=== PATIENT | male | born 1995 | race Caucasian/White ===

== ENCOUNTER 2023-05-31 08:17 | Emergency (ER) | payer OTHER, SELFPAY ==
[2023-05-31] VITALS (25 sets, daily range): BP systolic 108–140; BP diastolic 73–99; PULSE 56–76; RESP 8–22; TEMP 36.8; O2SAT 97–100
--- NOTE | ~2023-05-31 | XR_ITS ---
EXAMINATION: XR chest 1V portable DATE: 05/31/2023 08:38 INDICATION: Shortness of breath. Left chest pain. TECHNIQUE: A single frontal view of the chest was obtained on 2 radiographs. COMPARISON: None. FINDINGS: The chest demonstrates clear lungs without pneumonia, pleural effusion, or pneumothorax. Th e heart size is normal. IMPRESSION: 1. No acute cardiopulmonary disease. Reviewed, dictated and finalized at location A.
--- NOTE | 2023-05-31 08:18 | ECG_ITS ---
Measurements Intervals [place] Rate: 66 P: 260 TX: 84 QRS: 72 QRSD: 102 T: 46 QT: 379 QTc: 399 Interpretive Statements ECTOPIC ATRIAL RHYTHM INCOMPLETE RIGHT BUNDLE BRANCH BLOCK ABNORMAL ECG NO PREVIOUS ECG AVAILABLE FOR COMPARISON Electronically Signed On 05-31-2023 18:29:10 CDT by Micheal Alfaro D.O.
--- NOTE | 2023-05-31 09:16 | ED.CHESTPAIN ---
HPI - Chest Pain General Chief Complaint: Chest Pain Stated Complaint: chest pain Time Seen by Provider: 05/31/23 08:21 History of Present Illness HPI narrative: Patient is a 27-year-old male presenting with 6 months of chest pain. Patient states that he has been having diffuse chest pain associated with shortness of breath for the last approximately 6 months. He feels it is worsened over the last several weeks. States that he has noticed that it improves with exertion and comes back when he rests. States that it feels like he forgets about it whenever he is being active. Reports a mild cough. States he felt lightheaded and nauseated this morning so he came in for evaluation. States that he just made an appointment with his PCP for June 11. Currently, he denies pain. He declines pain medication. No fevers or chills, abdominal pain, vomiting, leg swelling, rashes, changes in bowel habits. Related Data Allergies Allergy/AdvReac Type Severity Reaction Status Date / Time No Known Allergies Allergy Verified 05/31/23 08:26 Review of Systems Review of Systems: All systems reviewed & are unremarkable except as noted in HPI and below Exam Narrative: GENERAL: Well-appearing, well-nourished, and in no acute distress. HEAD: Normocephalic, atraumatic. EYES: PERRLA and EOMI. ENT: Nares clear, no rhinorrhea or epistaxis. Mucous membranes moist. NECK: Supple. CHEST: Clear to auscultation. No respiratory distress. HEART: Regular rate and rhythm. No murmur heard. Normal peripheral pulses. ABDOMEN: Soft, nontender, nondistended EXTREMITIES: Normal range of motion. No edema. SKIN: Warm, dry, no rash. NEURO: No focal deficits. Alert and oriented x3. PSYCH: Normal mood and affect. Course Vital Signs Vital signs: Vital Signs Temperature 98.2 F 05/31/23 08:23 Pulse Rate 69 05/31/23 08:23 Respiratory Rate 16 05/31/23 08:23 Blood Pressure 140/99 H 05/31/23 08:23 Pulse Oximetry 100 05/31/23 08:23 Temperature 98.2 F 05/31/23 08:23 Pulse Rate 56 L 05/31/23 11:31 Respiratory Rate 16 05/31/23 11:31 Blood Pressure 111/78 05/31/23 11:31 Pulse Oximetry 99 05/31/23 11:31 Oxygen Delivery Room Air 05/31/23 08:27 MDM - Chest Pain MDM Narrative Medical decision making narrative: Patient is a 27-year-old male presenting with 6 months of chest pain with an episode of nausea and lightheadedness this morning. Vitals are stable. Exam is unremarkable. EKG per my interpretation shows normal sinus rhythm with short [place], normal axis, incomplete RBBB, no ST elevations or depressions. Blood work is unremarkable. Troponins are undetectable. Chest x-ray without acute abnormalities. Feel the patient is safe for outpatient management given his reassuring work-up and is 6+ months of symptoms. Patient states that he already has an appointment with primary care next week. Strongly advised that he keep this appointment. Advised Tylenol ibuprofen for pain control. Appropriate return precautions given. Patient discharged in stable condition. Differential Diagnosis Differential diagnosis: Likely pneumothorax, atypical chest pain, costochondritis and chest pain Medical Records Data Attestation: I reviewed the patient's medical records. Lab Data Attestation: I reviewed the patient's lab results. 05/31/23 09:43 05/31/23 09:43 Labs: Lab Results 05/31/23 Range/Units 09:43 WBC 7.3 (4.5-10.0) K/mm3 RBC 5.31 (4.6-6.20) M/mm3 Hgb 16.8 (14.0-18.0) g/dL Hct 48.9 (42.0-52.0) % MCV 92.1 (80-100) fl MCH 31.6 (26-34) pg MCHC 34.4 (32-36) g/dl RDW 12.1 (11.5-14.5) % Plt Count 172 (150-375) k/mm3 MPV 10.7 H (7.4-10.4) fl Immature Gran % (Auto) 0.4 (0-0.5) % Neut % (Auto) 79.0 H (45.5-73.1) % Lymph % (Auto) 11.3 L (18.3-44.2) % [place] % (Auto) 8.7 H (2.6-8.5) % Eos % (Auto) 0.3 (0-4.4) % Baso % (Auto) 0.3 (0.2-1.2) % Lymph # (Auto) 0.82 L
[2023-05-31 09:59] LABS: Basophils Percent Auto 0.3 % (0.2-1.2); Eosinophils Percent Auto 0.3 % (0-4.4); Hematocrit 48.9 % (42.0-52.0); Hemoglobin 16.8 g/dL (14.0-18.0); Immature Granulocyte Absolute 0.03 K/mm3 (0.00-0.031); Immature Granulocyte Percent A 0.4 % (0-0.5); Lymphocytes Absolute Auto 0.82 K/mm3 (0.9-3.2); Lymphocytes Percent Auto 11.3 % (18.3-44.2); Mean Corpuscular HGB Conc 34.4 g/dl (32-36); Mean Corpuscular Hemoglobin 31.6 pg (26-34); Mean Corpuscular Volume 92.1 fl (80-100); Mean Platelet Volume 10.7 fl (7.4-10.4); Monocytes Absolute Auto 0.6 K/mm3 (0.1-0.6); Monocytes Percent Auto 8.7 % (2.6-8.5); Neutrophils Absolute Auto 5.7 K/mm3 (1.3-6.7); Platelet Count Result 172 k/mm3 (150-375); Red Blood Count 5.31 M/mm3 (4.6-6.20); Red Cell Distribution Width 12.1 % (11.5-14.5); White Blood Count 7.3 K/mm3 (4.5-10.0)
[2023-05-31 10:17] LABS: Alanine Aminotransferase 20 U/L (6-50); Albumin Level 4.8 g/dL (3.5-5.1); Alkaline Phosphatase 68 U/L (38-126); Anion Gap 4 mmol/L (8-16); Aspartate Amino Transferase 29 U/L (17-59); Bilirubin,Total 0.7 mg/dL (0.2-1.3); Blood Urea Nitrogen 15 mg/dL (9-20); Calcium 9.5 mg/dL (8.4-10.2); Carbon Dioxide 30 mmol/L (22-30); Chloride 100 mmol/L (98-107); Estimated CRCL calculation 125 ml/min; Estimated Glomerular Filt Rate > 60; Glucose 97 mg/dL (65-110); Lipase 68 U/L (23-300); Sodium 134 mmol/L (137-145)
[2023-05-31 10:28] LABS: Troponin I < 0.012 ng/mL (0.000-0.034)
== END 2023-05-31 11:31 | disposition home or self-care (01) ==
PROVIDERS: Emergency Provider Emergency Medicine
DX: R07.89 Other chest pain (principal); I45.10 Unspecified right bundle-branch block
CPT/HCPCS: 36415; 71045; 80053; 83690; 84484; 85025; 93005; 99284